=== PATIENT | female | born 1990 | race Caucasian/White ===

== ENCOUNTER 2022-10-25 08:56 | Inpatient (IN) | payer BC, OTHER ==
[2022-10-25] MEDS: ELECTROLYTE-148 SOLN 1,000 ML IV SCH (10:00)
[2022-10-25 10:45] LABS: BLOOD UREA NITROGEN 12.3 mg/dL (7-18); CALCIUM 8.7 mg/dL (8.5-10.1)
[2022-10-25 10:49] LABS: CREATININE 0.5 mg/dL (0.55-1.3)
[2022-10-25 10:52] LABS: ACTIVATED PTT 26.4 SECONDS (25.2-36.5); INR 0.97 (0.83-1.09); PROTHROMBIN TIME (PATIENT) 11.3 SEC (9.7-13.0)
[2022-10-25 10:57] LABS: BASO % 0.4 % (0-2.0); EOS % 0.2 % (0-4.5); HEMATOCRIT 36.4 % (32.4-45.2); HEMOGLOBIN 12.6 GM/dL (10.7-15.3); LYMPH % 12.8 % (8-40); MCH 30.3 pg (25.7-33.7); MCHC 34.7 g/dl (32.0-36.0); MEAN CELL VOLUME 87.3 fl (80-96); MONO % 4.7 % (3.8-10.2); NEUT % 81.9 % (42.8-82.8); PLATELET COUNT 234 10^3/uL (134-434); RBC 4.17 M/mm3 (3.60-5.2); RDW 14.4 % (11.6-15.6); WHITE BLOOD COUNT 9.2 K/mm3 (4.0-10.0)
[2022-10-25 11:26] VITALS: BMI 33.7
[2022-10-25] MEDS ORDERED: OXYTOCIN 30 UNITS in 0.9% NS 30 UNIT/500 ML INFUS.BAG IVPB ONE ×2 (12:15→19:28)
[2022-10-25] MEDS: OXYTOCIN 30 UNITS in 0.9% NS 30 UNIT/500 ML INFUS.BAG IVPB SCH (12:20)
[2022-10-25] MEDS ORDERED: FENTANYL/BUPIVACAINE/NS/PF - PCEA - 50 ML DISP.SYRIN EP ONE ×3 (14:14→21:43)
[2022-10-25] MEDS ORDERED: NALOXONE HCL 0.4 MG/ML VIAL IVPUSH PRN (14:25)
[2022-10-25] MEDS ORDERED: BUPIVACAINE HCL/PF 0.25% (2.5MG/ML) 10 ML VIAL ONE (14:30)
[2022-10-25] MEDS: FENTANYL/BUPIVACAINE/NS/PF - PCEA - 50 ML DISP.SYRIN EP SCH ×2 (14:40→21:45)
[2022-10-25] MEDS ORDERED: FENTANYL CITRATE/PF 50 MCG/ML VIAL ONE (22:07)
[2022-10-26] MEDS ORDERED: FENTANYL/BUPIVACAINE/NS/PF - PCEA - 50 ML DISP.SYRIN EP ONE (00:58)
[2022-10-26] MEDS ORDERED: morphine SULFATE/PF 1 MG/2 ML (2cc Syringe - QUVA) ONE (01:12)
[2022-10-26] MEDS ORDERED: FENTANYL CITRATE/PF 50 MCG/ML VIAL ONE (01:12)
[2022-10-26] MEDS ORDERED: ONDANSETRON 4 MG/2 ML VIAL ONE (01:14)
[2022-10-26] MEDS ORDERED: KETOROLAC TROMETHAMINE 30 MG/1 ML VIAL ONE (01:14)
[2022-10-26] MEDS ORDERED: OXYTOCIN 10 UNITS/ML VIAL ONE (01:14)
[2022-10-26] MEDS ORDERED: ceFAZolin SODIUM 1 GM VIAL ONE ×3 (02:19→15:28)
[2022-10-26] MEDS ORDERED: METHYLERGONOVINE MALEATE 0.2 MG/1 ML AMP IM PRN (02:38)
[2022-10-26] MEDS ORDERED: IBUPROFEN 800 MG/8 ML IJ IVPB PRN (02:38)
[2022-10-26] MEDS ORDERED: SENNOSIDES/DOCUSATE COMBO (SENNA PLUS) TABLET (UD) PO PRN (02:38)
[2022-10-26] MEDS ORDERED: ONDANSETRON 4 MG/2 ML VIAL IVPUSH PRN (02:46)
[2022-10-26] MEDS ORDERED: morphine SULFATE/PF 1 MG/2 ML (2cc Syringe - QUVA) SPIN ONE (02:46)
[2022-10-26] MEDS ORDERED: ACETAMINOPHEN 1000 MG/100 ML BAG IVPB ONE (02:47)
[2022-10-26 02:52] LABS: CORD BASE EXCESS -10.8 mmol/L (0-2); CORD HCO3 18.5 mmHg (20-29); CORD HCO3 19.4 mmHg (20-29); CORD PCO2 53.9 mmHg (30-78); CORD PCO2 63.7 mmHg (30-78); CORD pH 7.102 (7.14-7.44); CORD pH 7.153 (7.14-7.44)
[2022-10-26] MEDS: OXYTOCIN 20 UNITS in 0.9% NS 20 UNIT/1,000 ML INFUS.BAG IV SCH ×2 (03:15→12:25)
[2022-10-26] MEDS ORDERED: ACETAMINOPHEN INJECTION 100 ML IVPB ONE (04:36)
[2022-10-26] MEDS ORDERED: ACETAMINOPHEN 325 MG TABLET (FP) ONE (09:23)
[2022-10-26] MEDS: ACETAMINOPHEN 325 MG TABLET (FP) PO PRN ×2 (09:30→23:19)
[2022-10-26] MEDS ORDERED: CEFAZOLIN SODIUM 2 GM in DEXTROSE 5%-WATER 100 ML IVPB ONE (09:30)
[2022-10-26] MEDS: ELECTROLYTE-148 SOLN 1,000 ML IV SCH (09:45)
[2022-10-26] MEDS: ENOXAPARIN NA (PORCINE) 40 MG/0.4 ML DISP.SYRIN SQ SCH (10:08)
[2022-10-26] MEDS: OXYTOCIN 30 UNITS in 0.9% NS 30 UNIT/500 ML INFUS.BAG IVPB SCH (11:15)
[2022-10-26] MEDS ORDERED: OXYTOCIN 20 UNITS in 0.9% NS 20 UNIT/1,000 ML INFUS.BAG IV ONE (12:19)
[2022-10-26] MEDS: FENTANYL/BUPIVACAINE/NS/PF - PCEA - 50 ML DISP.SYRIN EP SCH (14:30)
[2022-10-26] MEDS ORDERED: oxyCODONE HCL 5 MG TABLET PO PRN ×2 (14:38)
[2022-10-26] MEDS: CEFAZOLIN 1 GM in DEXTROSE 5%-WATER - 50 ML IVPB SCH ×2 (15:32→21:03)
[2022-10-26] MEDS: IBUPROFEN 600 MG TABLET (FP) PO PRN ×2 (15:37→21:05)
[2022-10-26] MEDS ORDERED: IBUPROFEN 600 MG TABLET (FP) PO ONE (15:39)
[2022-10-26] MEDS: SIMETHICONE 80 MG TAB.CHEW (FP) PO PRN (21:03)
[2022-10-27] MEDS ORDERED: BISACODYL 10 MG SUPP.RECT RC PRN (02:38)
[2022-10-27] MEDS: CEFAZOLIN 1 GM in DEXTROSE 5%-WATER - 50 ML IVPB SCH ×2 (03:51→09:14)
[2022-10-27 06:31] LABS: BASO % 0.3 % (0-2.0); EOS % 0.5 % (0-4.5); HEMOGLOBIN 10.4 GM/dL (10.7-15.3); LYMPH % 11.2 % (8-40); MCH 30.3 pg (25.7-33.7); MCHC 34.7 g/dl (32.0-36.0); MEAN CELL VOLUME 87.2 fl (80-96); MEAN PLT VOLUME 7.9 fl (7.5-11.1); MONO % 4.6 % (3.8-10.2); NEUT % 83.4 % (42.8-82.8); PLATELET COUNT 209 10^3/uL (134-434); RBC 3.44 M/mm3 (3.60-5.2); RDW 14.4 % (11.6-15.6); WHITE BLOOD COUNT 13.1 K/mm3 (4.0-10.0)
[2022-10-27] MEDS: IBUPROFEN 600 MG TABLET (FP) PO PRN ×3 (08:53→20:30)
[2022-10-27] MEDS: SIMETHICONE 80 MG TAB.CHEW (FP) PO PRN ×3 (08:53→20:30)
[2022-10-27] MEDS: ENOXAPARIN NA (PORCINE) 40 MG/0.4 ML DISP.SYRIN SQ SCH (09:14)
[2022-10-27] MEDS: ACETAMINOPHEN 325 MG TABLET (FP) PO PRN (11:29)
[2022-10-28] MEDS: ACETAMINOPHEN 325 MG TABLET (FP) PO PRN ×3 (00:57→23:57)
[2022-10-28] MEDS: SIMETHICONE 80 MG TAB.CHEW (FP) PO PRN ×3 (00:58→20:30)
[2022-10-28] MEDS: IBUPROFEN 600 MG TABLET (FP) PO PRN ×3 (06:12→20:30)
[2022-10-28] MEDS: ENOXAPARIN NA (PORCINE) 40 MG/0.4 ML DISP.SYRIN SQ SCH (09:04)
[2022-10-29] MEDS: IBUPROFEN 600 MG TABLET (FP) PO PRN (08:41)
[2022-10-29] MEDS: SIMETHICONE 80 MG TAB.CHEW (FP) PO PRN (08:42)
[2022-10-29 09:29] LABS: BASO % 0.4 % (0-2.0); EOS % 0.9 % (0-4.5); HEMOGLOBIN 9.8 GM/dL (10.7-15.3); MCH 30.9 pg (25.7-33.7); MCHC 35.1 g/dl (32.0-36.0); MEAN CELL VOLUME 87.9 fl (80-96); MEAN PLT VOLUME 7.9 fl (7.5-11.1); MONO % 5.1 % (3.8-10.2); NEUT % 74.6 % (42.8-82.8); PLATELET COUNT 230 10^3/uL (134-434); RBC 3.18 M/mm3 (3.60-5.2); RDW 14.2 % (11.6-15.6); WHITE BLOOD COUNT 8.1 K/mm3 (4.0-10.0)
[2022-10-29] MEDS: ENOXAPARIN NA (PORCINE) 40 MG/0.4 ML DISP.SYRIN SQ SCH (10:07)
[2022-10-29 10:46] VITALS: BP 110/76; PULSE 97; RESP 18; TEMP 98.8
== END 2022-10-29 12:35 | disposition home or self-care (01) | DRG 788 ==
LOC: JDEL 08:56 → JLDR 09:30 → J3W 10-26 16:24
PROVIDERS: ADMIT Obstetrics & Gynecology; ATTEND Obstetrics & Gynecology
PROC: 10907ZC Drainage of Amniotic Fluid, Therapeutic from Products of Conception, Via Natural or Artificial Opening (ICD-10-PCS; 2022-10-25)
PROC: 10H07YZ Insertion of Other Device into Products of Conception, Via Natural or Artificial Opening (ICD-10-PCS; 2022-10-25)
PROC: 10D00Z1 Extraction of Products of Conception, Low, Open Approach (ICD-10-PCS; principal; 2022-10-26)
DX: O62.0 Primary inadequate contractions (principal); O77.0 Labor and delivery complicated by meconium in amniotic fluid; O69.81X0 Labor and delivery complicated by cord around neck, without compression, not applicable or unspecified; Z3A.40 40 weeks gestation of pregnancy; Z37.0 Single live birth
CPT/HCPCS: 36415; 36600; 80048; 82803; 85025; 85610; 85730; 86780; 86850; 86900; 86901; 88307-TC; C9803-CS; U0003; U0005